=== PATIENT | male | born 1975 | race Caucasian/White ===

== ENCOUNTER 2019-03-14 12:27 | Emergency (ER) | payer BC ==
--- NOTE | 2019-03-14 12:50 | Emergency Department Record ---
History of Present Illness - General Chief Complaint: Chest Pain Stated Complaint: COUGH AND CHEST DICOMFORT Time Seen by Provider: 03/14/19 12:36 Source: Patient Mode of Arrival: Ambulatory Limitations: No limitations - History of Present Illness Initial Comments: 43 yo male presents with cough, congestion, and pain with inspiration on the right upper chest for about 10 days. He is a smoker. He had noticed wheezing for about 2-3 weeks before the pain. He woke up 10 days ago and cough hard to get mucous up. That is when the pain started. It has persisted since then with cough or deep breath. NO fever. No hemoptysis. He has not seen a PCP since 2002. MD Complaint: Chest pain Onset/Timin -: Week(s) Pain Location: Right chest Pain Radiation: None Severity: Mild Severity scale (1-10): 4 Quality: Sharp Improves With: Nothing Worsens With: Nothing Context: Other Anginal Symptoms: Other Other Symptoms: Cough Treatments Prior to Arrival: None - Related Data Previous Rx's Medication Instructions Recorded Albuterol Sulfate [Proair Hfa] 1 - 2 puff IH .EVERY 4-6 HOURS PRN 03/14/19 #1 inhaler Azithromycin [Zithromax] 250 mg PO DAILY #6 tab 03/14/19 Prednisone [Prednisone 20Mg] 20 mg PO BID #10 tab 03/14/19 Allergies Allergy/AdvReac Type Severity Reaction Status Date / Time No Known Drug Allergies Allergy Verified 03/14/19 12:37 Travel Screening - Travel/Exposure Within Last 30 Days Have you traveled within the last 30 days?: No Review of Systems Constitutional: Denies: Chills, Fever, Malaise, Weakness Eyes: Denies: Eye discharge ENT: Reports: Congestion. Denies: Dental pain, Ear pain, Epistaxis Respiratory: Reports: Cough, Wheezes. Denies: Hemoptysis, Stridor Cardiovascular: Reports: Chest pain. Denies: Edema, Palpitations, Syncope Endocrine: Denies: Fatigue, Polydipsia, Polyuria Gastrointestinal: Denies: Abdominal pain, Diarrhea, Nausea, Vomiting Genitourinary: Denies: Dysuria, Frequency, Hematuria Musculoskeletal: Denies: Arthralgia, Back pain, Myalgia Skin: Denies: Bruising, Change in color, Rash Neurological: Denies: Headache Psychiatric: Denies: Anxiety Hematological/Lymphatic: Denies: Easy bleeding, Easy bruising Past Medical History - SOCIAL HISTORY Smoking Status: Current every day smoker Alcohol Use: None Drug Use: None - RESPIRATORY Hx Respiratory Disorders: No - CARDIOVASCULAR Hx Cardio Disorders: No - NEURO Hx Neuro Disorders: No - GI Hx GI Disorders: No - Hx Genitourinary Disorders: No - ENDOCRINE Hx Endocrine Disorders: No - MUSCULOSKELETAL Hx Musculoskeletal Disorders: No - PSYCH Hx Psych Problems: No - HEMATOLOGY/ONCOLOGY Hx Hematology/Oncology Disorders: No Family Medical History Any Significant Family History?: Yes Hx Cancer: Grandparents Hx Diabetes: Brother/Sister Physical Exam - General General Appearance: Alert, Oriented x3, Cooperative, No acute distress Limitations: No limitations - Head Head exam: Atraumatic, Normal inspection - Eye Eye exam: Normal appearance. negative: Conjunctival injection, Scleral icterus - ENT ENT exam: Normal exam, Mucous membranes moist Ear exam: Normal external inspection Nasal Exam: Normal inspection Mouth exam: Normal external inspection - Neck Neck exam: Normal inspection. negative: Tenderness - Respiratory Respiratory exam: Chest wall tenderness, Decreased breath sounds, Prolonged expiratory, Wheezes. negative: Normal lung sounds bilaterally, Accessory muscle use, Respiratory distress, Rhonchi, Stridor - Cardiovascular Cardiovascular Exam: Regular rate, Normal rhythm, Normal heart sounds Peripheral Pulses: 2+: Radial (R), Radial (L) - GI/Abdominal GI/Abdominal exam: Soft. negative: Tenderness - Rectal Rectal exam: Deferred - exam: Deferred - Extremities Extremities exam: Normal inspection. negative: Pedal edema, Tenderness - Back Back exam: Denies: CVA tenderness (R), CVA tenderness (L) - Neurological Neurological exam: Alert, Oriented X3 - Psychiatric Psychiatric exam: Normal affect, Normal mood - Skin Skin exam: Dry, Intact, Normal color, Warm Course Vital Signs 03/14/19 12:34 Temperature 98.5 F Pulse Rate 76 Respiratory 18 Rate Blood Pressure 133/97 Pulse Ox 97 - Reevaluation(s) Reevaluation #1: 03/14/19 12:44 EKG #1: 12:39 Rate: 77 Rhythm: sinus Dickens: normal Intervals: normal ST segments: normal RSR' No old to compare Prior: none 03/14/19 12:56 Duoneb ordered for bilateral wheezing No acute distress. Very reproducible pain in the right upper chest 03/14/19 13:06 The lungs are clear after the Duoneb. He is subjectively improved as well. 03/14/19 13:24 The labs results were reviewed There are no acute significant abnormalities of the CBC There are no acute significant abnormalities of the CMP 03/14/19 13:29 D-dimer is negative CXR ordered 03/14/19 14:27 The CXR was reviewed. No acute process on the preliminary review DC home on Zithromax, Prednisone, and Albuterol 03/14/19 14:28 The patient was educated about smoking cessation and that this may be his first signs of COPD Medical Decision Making - Lab Data Result diagrams: 03/14/19 13:00 03/14/19 13:00 Disposition Disposition: Discharge Clinical Impression: Wheezing, Pleuritic chest pain Disposition: Home, Self-Care Condition: (1) Good Instructions: Reactive Airways Disease (ED) Additional Instructions: Call the Family Practice for the next available follow up appointment with a new family doctor Return to the ER for a recheck if worse, any new concerns or questions Take the prescriptions provided as directed Review this ER visit and the tests performed with your family doctor Prescriptions: Albuterol Sulfate [Proair Hfa] 1 - 2 puff IH .EVERY 4-6 HOURS PRN #1 inhaler PRN Reason: Difficulty In Breathing Azithromycin [Zithromax] 250 mg PO DAILY #6 tab Prednisone [Prednisone 20Mg] 20 mg PO BID #10 tab Referrals: JASON DUMONT [MEDICAL DOCTOR] - Forms: Patient Portal Access Time of Disposition: 14:29 Quality - Quality Measures Quality Measures: N/A - Blood Pressure Screening Does Patient Have Any of the Following: No Blood Pressure Classification: Pre-Hypertensive BP Reading Systolic Measurement: 133 Diastolic Measurement: 87 Screening for High Blood Pressure: < Pre-Hypertensive BP, F/U Documented > [ [id number]] Pre-Hypertensive Follow-up Interventions: Referral to alternative/primary care provider.
[2019-03-14] MEDS ORDERED: METHYLPREDNISOLONE PF 125MG/VIAL IVP ONE (12:51)
[2019-03-14] MEDS ORDERED: IPRATROPIUM/ALBUTEROL (0.5MG/3MG) NEB INH ONE (12:51)
[2019-03-14] MEDS ORDERED: ALBUTEROL HFA 8 GM INHALER INH ONE (12:52)
[2019-03-14 13:04] LABS: BASO % 0.3 % (0-6); EOS % 1.3 % (0-6); GRAN % 58.1 % (47-80); HEMATOCRIT 48.9 % (42.0-52.0); HEMOGLOBIN 16.6 gm/dl (14.0-18.0); LYMPH % 32.3 % (16-45); MEAN CELL VOLUME 91.7 fl (81-97); MEAN CORPUSCULAR HEMOGLOBIN 31.1 pg (27-33); MEAN CORPUSCULAR HGB CONC 33.9 g/dl (32-36); MEAN PLATELET VOLUME 11.2 fl (7.4-10.4); PLATELET COUNT 228 K/uL (130-400); RED BLOOD COUNT 5.33 M/uL (4.40-5.70); RED CELL DISTRIBUTION WIDTH 13.2 % (11.5-14.5); WHITE BLOOD COUNT W/O DIFF 6.8 K/uL (4.2-12.2)
[2019-03-14 13:13] LABS: BLOOD UREA NITROGEN 8 mg/dL (6-20)
[2019-03-14 13:14] LABS: CREATININE 0.8 mg/dL (0.7-1.2); EST GLOMERULAR FILTRATION RATE > 60 mL/min; TOTAL PROTEIN 6.9 g/dL (6.6-8.7)
[2019-03-14 13:16] LABS: GLUCOSE,RANDOM 100 mg/dL (74-109)
[2019-03-14 13:19] LABS: ALB/GLOB RATIO 1.6 (1.1-1.8); ALBUMIN 4.2 g/dL (4.0-5.0); ALKALINE PHOSPHATASE 82 U/L (40-129); ALT/SGPT 23 U/L (<41); AST/SGOT 15 U/L (10.0-50.0)
--- NOTE | 2019-03-18 07:47 | RADIOLOGY REPORT ---
EXAM: CHEST 2 VIEWS HISTORY: RIGHT-SIDED CHEST PAIN WITH CONGESTION FOR TWO WEEKS. TECHNIQUE: Upright PA and lateral views of the chest. COMPARISON: None. FINDINGS: The cardiomediastinal silhouette is normal in size and configuration. The pulmonary vasculature is nondilated. The lungs and pleural spaces are clear. No acute osseous abnormality. IMPRESSION: NO RADIOGRAPHIC EVIDENCE OF ACUTE CARDIOPULMONARY DISEASE. JOB NUMBER: [id number] [facility]
== END 2019-03-14 14:52 | disposition home or self-care (01) ==
LOC: ER 12:27
DX: R07.1 Chest pain on breathing (principal); R06.2 Wheezing; R05 Cough; F17.210 Nicotine dependence, cigarettes, uncomplicated
CPT/HCPCS: 71046; 80053; 85025; 85379; 93005; 93010; 94640; 94664; 96374; 99284; J2930